=== PATIENT | male | born 1980 | race Caucasian/White ===

== ENCOUNTER 2017-08-10 20:37 | Emergency (ER) | payer SELFPAY ==
[2017-08-10] MEDS ORDERED: Lidocaine 4% TOPICAL* 50 ML TOP.SOLN TOPICAL ONE (21:11)
[2017-08-10] MEDS ORDERED: Phenylephrine 1% NASAL* 15 ML BOT RIGHT NARE ONE (21:13)
[2017-08-10] MEDS ORDERED: Phenylephrine 0.5% NASAL* BTL ONE (21:20)
[2017-08-10] MEDS ORDERED: Phenylephrine 0.5% NASAL* BTL RIGHT NARE ONE (21:21)
[2017-08-10] MEDS ORDERED: Silver Nitrate/Potassium Nitr* 1 EA STICK ONE (21:40)
[2017-08-10 22:06] VITALS: BP 130/96
--- NOTE | 2017-08-13 17:50 | ED ---
Temi Murillo Abhishek, scribed for Shay Lopez MD on 08/10/17 at 2113 . Throat Pain/Nasal Congestion - HPI Summary HPI Summary: This patient is a 37 year old M presenting to [facility] accompanied by female with a chief complaint of epistaxis since 1100. The CC is described as intermittent. Patient states the bleeding was like a faucet and also states may have occurred because I overexerted myself. Symptoms aggravated by movement. Symptoms alleviated by nothing. Patient denies any other form of pain. Pt states no other PMHx of HTN, DM and CAD. Pt also denies FHx of HTN, DM and CAD. - History of Current Complaint Chief Complaint: EDEpistaxis Time Seen by Provider: 08/10/17 20:47 Hx Obtained From: Patient Onset/Duration: Sudden Onset, Lasting Hours - since 1100 today Severity: Moderate - Patient states the bleeding was like a faucet Associated Signs And Symptoms: Positive: Nasal Discharge - epistaxis - Allergies/Home Medications Allergies/Adverse Reactions: Allergies Allergy/AdvReac Type Severity Reaction Status Date / Time Bee Venom Allergy Anaphylatic Verified 08/10/17 20:42 Shock Penicillin G Allergy Anaphylatic Verified 08/10/17 20:42 Shock PMH/Surg Hx/FS Hx/Imm Hx Previously Healthy: Yes Endocrine/Hematology History: Denies: Hx Diabetes Cardiovascular History: Denies: Hx Coronary Artery Disease, Hx Hypertension Infectious Disease History: No Infectious Disease History: Denies: Traveled Outside the [place] in Last 30 Days - Family History Known Family History: Negative: Cardiac Disease, Hypertension, Diabetes - Social History Alcohol Use: Daily Alcohol Amount: 4-5 drinks Substance Use Type: Reports: None Smoking Status (MU): Never Smoked Tobacco Review of Systems Constitutional: Negative Eyes: Negative Positive: Epistaxis - Patient states the bleeding was like a faucet and also states may have occurred because I overexerted myself. Cardiovascular: Negative Respiratory: Negative Gastrointestinal: Negative Genitourinary: Negative Positive: Other - Negative any other form of pain Skin: Negative Neurological: Negative Psychological: Normal All Other Systems Reviewed And Are Negative: Yes Physical Exam - Summary Physical Exam Summary: Appearance: Well-appearing, no pain distress IF BMI > 30 = obese Skin: Warm, dry, color reflects adequate perfusion Head/face: Nml head/face Eyes: Nml eyes ENT: Bleeding on the right septum at the kiesselbach's plexus Neck: Supple, non-tender Respiratory: CTA, breath sound present Cardiovascular: RRR Abdomen: Abd soft, non-tender, Bowel: Bowel sounds + Musculoskeletal: Nml musculoskeletal Neurological: Nml neuro (unless it is a neuro Pt, then click the first 4) Psychiatric: Nml psychiatric, affect/mood appropriate Triage Information Reviewed: Yes Vital Signs On Initial Exam: Initial Vitals Temp Pulse Resp BP Pulse Ox 97.8 F 105 18 148/112 96 08/10/17 20:43 08/10/17 20:43 08/10/17 20:43 08/10/17 20:43 08/10/17 20:43 Vital Signs Reviewed: Yes - Mio Coma Scale Coma Scale Total: 15 Procedures - Procedure Summary Procedure Summary: Mr. Blair nose was clamped with a makeshift tongue depressor clamp. He was noted after to have an area of fresh bleeding on the right septum. Cotton was placed loosely with neosynephrine and lidocaine. This was removed and he was cauterized and the bleeding controlled. Diagnostics - Vital Signs Vital Signs Temp Pulse Resp BP Pulse Ox 08/10/17 20:43 97.8 F 105 18 148/112 96 - Laboratory Lab Statement: Any lab studies that have been ordered have been reviewed, and results considered in the medical decision making process. EENT Course/Dx - Diagnoses Provider Diagnoses: Nosebleed Discharge - Discharge Plan Condition: Stable Disposition: HOME Patient Education Materials: Nosebleed (ED) Referrals: No Primary Care Phys,NOPCP [Primary Care Provider] - (Follow up with PCP as needed) The documentation as recorded by the Temi wood Abhishek accurately reflects the service I personally performed and the decisions made by , Shay Lopez MD.
== END 2017-08-10 22:05 | disposition home or self-care (01) ==
LOC: ED 20:37
DX: R04.0 Epistaxis (principal); Z88.0 Allergy status to penicillin; Z91.030 Bee allergy status
CPT/HCPCS: 99282; A9270-GY